=== PATIENT | female | born 1955 | race Caucasian/White ===

== ENCOUNTER 2021-01-29 23:02 | Emergency (ER) | payer MEDICARE, MEDICAID ==
[~2021-01-29] VITALS: Ht 167.6 cm; Wt 72.7 kg
[2021-01-29] MEDS ORDERED: LORazepam 2 mg/ml vial IV ONE (23:15)
[2021-01-29] MEDS ORDERED: normal saline 1000ML IV soln IVB ONE (23:15)
[2021-01-29 23:55] LABS: BASOPHILS % (AUTO) 0.9 % (0-1); EOSINOPHILS # (AUTO) 0.2 X10'3 (0-0.9); EOSINOPHILS % (AUTO) 7.5 % (0-6); HEMATOCRIT 34.9 % (35.0-45.0); HEMOGLOBIN 11.9 g/dl (12.0-16.0); LYMPHOCYTES # (AUTO) 0.7 X10'3 (1.1-4.8); MEAN CORPUSCULAR HEMOGLOBIN 31.4 PG (27.0-31.0); MEAN CORPUSCULAR HGB CONC 34.2 g/dL (33.0-36.5); MEAN PLATELET VOLUME 8.7 FL (7.4-10.4); MONOCYTES # (AUTO) 0.2 X10'3 (0-0.9); MONOCYTES % (AUTO) 6.9 % (2-12); NEUTROPHILS # (AUTO) 1.9 X10'3 (1.8-7.7); NEUTROPHILS % (AUTO) 61.7 % (42-75); PLATELET COUNT 69 X10'3 (140-440); RED BLOOD COUNT 3.79 X10'6 (4.20-5.60)
[2021-01-30 00:22] LABS: ALANINE AMINOTRANSFERASE 41 U/L (12-78); ALBUMIN 3.7 G/DL (3.4-5.0); ALBUMIN/GLOBULIN RATIO 0.9 (1.1-1.5); ALKALINE PHOSPHATASE 109 IU/L (46-116); ANION GAP 11 (8-16); ASPARTATE AMINO TRANSFERASE 26 U/L (10-37); BILIRUBIN,TOTAL 0.6 MG/DL (0.1-1.0); BLOOD UREA NITROGEN 8 MG/DL (7-18); BUN/CREATININE RATIO 8.8 (6.6-38.0); CALCIUM 9.2 MG/DL (8.5-10.1); CHLORIDE 99 MMOL/L (99-107); CREATININE 0.91 MG/DL (0.40-0.90); GLUCOSE 332 MG/DL (70-104); POTASSIUM 4.1 MMOL/L (3.5-5.1); SODIUM 133 MMOL/L (135-145); TOTAL CARBON DIOXIDE 23.1 MMOL/L (24-32); TOTAL PROTEIN 7.6 G/DL (6.4-8.2); eGFR 62 ML/MIN
[2021-01-30 00:25] LABS: TROPONIN I < 0.04 NG/ML (0.0-0.05)
[2021-01-30 01:50] VITALS: BP 156/58
== END 2021-01-30 01:52 | disposition home or self-care (01) ==
LOC: ER 23:03
DX: E11.65 Type 2 diabetes mellitus with hyperglycemia (principal); R42 Dizziness and giddiness; R51.9 Headache, unspecified; R19.7 Diarrhea, unspecified; R11.10 Vomiting, unspecified; E05.90 Thyrotoxicosis, unspecified without thyrotoxic crisis or storm; Z86.2 Personal history of diseases of the blood and blood-forming organs and certain disorders involving the immune mechanism; Z88.0 Allergy status to penicillin; Z88.5 Allergy status to narcotic agent; Z88.1 Allergy status to other antibiotic agents; Z88.8 Allergy status to other drugs, medicaments and biological substances
CPT/HCPCS: 70450; 71045; 80053; 84484; 85025; 93005; 96374; 99285; J2060; J7030; 96361

== ENCOUNTER 2021-08-11 08:44 | Emergency (ER) | payer MEDICARE, MEDICAID ==
[~2021-08-11] VITALS: Ht 170.2 cm; Wt 80.5 kg
[2021-08-11 09:07] VITALS: BP 176/75
[2021-08-11 09:58] LABS: BASOPHILS # (AUTO) 0.1 X10'3 (0-0.2); EOSINOPHILS # (AUTO) 0.3 X10'3 (0-0.9); HEMOGLOBIN 12.7 g/dl (12.0-16.0); MEAN CORPUSCULAR HEMOGLOBIN 31.5 PG (27.0-31.0); MONOCYTES # (AUTO) 0.3 X10'3 (0-0.9); NEUTROPHILS # (AUTO) 2.1 X10'3 (1.8-7.7)
[2021-08-11 10:00] LABS: BASOPHILS % (AUTO) 2.4 % (0-1); EOSINOPHILS % (AUTO) 6.8 % (0-6); HEMATOCRIT 37.1 % (35.0-45.0); LYMPHOCYTES # (AUTO) 1.3 X10'3 (1.1-4.8); LYMPHOCYTES % (AUTO) 31.7 % (21-51); MEAN CORPUSCULAR HGB CONC 34.2 g/dL (33.0-36.5); MEAN CORPUSCULAR VOLUME 92.1 FL (78-98); MEAN PLATELET VOLUME 8.4 FL (7.4-10.4); MONOCYTES % (AUTO) 7.8 % (2-12); NEUTROPHILS % (AUTO) 51.3 % (42-75); PLATELET COUNT 120 X10'3 (140-440); RED BLOOD COUNT 4.03 X10'6 (4.20-5.60); RED CELL DISTRIBUTION WIDTH 13.8 % (11.5-14.5)
[2021-08-11 10:14] LABS: ALANINE AMINOTRANSFERASE 53 U/L (12-78); ALBUMIN 3.9 G/DL (3.4-5.0); ALKALINE PHOSPHATASE 130 IU/L (46-116); ANION GAP 18 (8-16); ASPARTATE AMINO TRANSFERASE 30 U/L (10-37); BILIRUBIN,TOTAL 0.7 MG/DL (0.1-1.0); BLOOD UREA NITROGEN 8 MG/DL (7-18); BUN/CREATININE RATIO 12.1 (6.6-38.0); CALCIUM 8.8 MG/DL (8.5-10.1); CHLORIDE 98 MMOL/L (99-107); CREATININE 0.66 MG/DL (0.40-0.90); GLUCOSE 234 MG/DL (70-104); POTASSIUM 4.4 MMOL/L (3.5-5.1); SODIUM 133 MMOL/L (135-145); TOTAL CARBON DIOXIDE 16.9 MMOL/L (24-32); TOTAL PROTEIN 7.9 G/DL (6.4-8.2); eGFR 90 ML/MIN
== END 2021-08-11 15:38 | disposition left against medical advice (07) ==
LOC: ER 08:45
DX: R20.0 Anesthesia of skin (principal); Z53.21 Procedure and treatment not carried out due to patient leaving prior to being seen by health care provider
CPT/HCPCS: 36415; 71045; 80053; 82948; 84484; 85025; 93005

== ENCOUNTER 2023-10-08 16:39 | Emergency (ER) | payer MEDICARE, MEDICAID ==
[~2023-10-08] VITALS: Ht 170.2 cm; Wt 77.7 kg
[2023-10-08 17:55] LABS: BASOPHILS # (AUTO) 0.1 X10'3 (0-0.2); BASOPHILS % (AUTO) 1.9 % (0-1); EOSINOPHILS # (AUTO) 0.3 X10'3 (0-0.9); EOSINOPHILS % (AUTO) 8.4 % (0-6); HEMATOCRIT 29.8 % (35.0-45.0); HEMOGLOBIN 10.3 g/dl (12.0-16.0); LYMPHOCYTES # (AUTO) 0.7 X10'3 (1.1-4.8); LYMPHOCYTES % (AUTO) 19.1 % (21-51); MEAN CORPUSCULAR HEMOGLOBIN 31.6 PG (27.0-31.0); MEAN CORPUSCULAR HGB CONC 34.6 g/dL (33.0-36.5); MEAN CORPUSCULAR VOLUME 91.2 FL (78-98); MEAN PLATELET VOLUME 8.6 FL (7.4-10.4); MONOCYTES # (AUTO) 0.3 X10'3 (0-0.9); MONOCYTES % (AUTO) 9.4 % (2-12); NEUTROPHILS # (AUTO) 2.2 X10'3 (1.8-7.7); NEUTROPHILS % (AUTO) 61.2 % (42-75); PLATELET COUNT 88 X10'3 (140-440); RED BLOOD COUNT 3.27 X10'6 (4.20-5.60); RED CELL DISTRIBUTION WIDTH 13.9 % (11.5-14.5); WHITE BLOOD COUNT 3.7 X10'3 (4.5-11.0)
[2023-10-08 18:10] LABS: ALANINE AMINOTRANSFERASE 28 U/L (12-78); ALBUMIN 3.1 G/DL (3.4-5.0); ALBUMIN/GLOBULIN RATIO 0.9 (1.1-1.5); ALKALINE PHOSPHATASE 97 IU/L (46-116); ANION GAP 10 (8-16); ASPARTATE AMINO TRANSFERASE 32 U/L (10-37); BILIRUBIN,TOTAL 0.9 MG/DL (0.1-1.0); BLOOD UREA NITROGEN 13 MG/DL (7-18); BUN/CREATININE RATIO 15.3 (10.0-20.0); CHLORIDE 95 MMOL/L (99-107); CREATININE 0.85 MG/DL (0.40-0.90); GLUCOSE 245 MG/DL (70-104); POTASSIUM 5.2 MMOL/L (3.5-5.1); SODIUM 124 MMOL/L (135-145); TOTAL CARBON DIOXIDE 19.5 MMOL/L (24-32); TOTAL PROTEIN 6.5 G/DL (6.4-8.2); eCRCL 62 ML/MIN; eGFR 67 ML/MIN
[2023-10-08] MEDS ORDERED: normal saline 1000ml 1,000 ML IV ONE (19:10)
[2023-10-08 22:27] LABS: D-DIMER 1.57 MG/L FEU (0-0.50)
[2023-10-08] MEDS ORDERED: iohexol 350MG/ML 100ml bottle IV ONE (22:50)
[2023-10-09] MEDS ORDERED: acetaminophen 325mg tablet PO ONE (00:30)
[2023-10-09 01:14] VITALS: BP 158/59; PULSE 97; RESP 18; TEMP 98.1; O2SAT 96
== END 2023-10-09 01:20 | disposition home or self-care (01) ==
LOC: ER 16:40
DX: I44.7 Left bundle-branch block, unspecified (principal); E87.1 Hypo-osmolality and hyponatremia; R42 Dizziness and giddiness; E05.90 Thyrotoxicosis, unspecified without thyrotoxic crisis or storm; Z88.0 Allergy status to penicillin; Z88.1 Allergy status to other antibiotic agents; Z88.5 Allergy status to narcotic agent; Z79.899 Other long term (current) drug therapy
CPT/HCPCS: 36415; 71046; 71275; 80053; 84484; 85025; 85379; 93005; 96360; 99285; J3490; J7030; Q9967

== ENCOUNTER 2023-10-18 13:30 | Emergency (ER) | payer MEDICARE, MEDICAID ==
[~2023-10-18] VITALS: Ht 170.2 cm; Wt 76.6 kg
--- NOTE | 2023-10-18 14:53 | NUR ---
MSE COMPLETED BY SMILEY BRYSON.
[2023-10-18] MEDS ORDERED: doxycycline inj 100 MG in normal saline 100ml IV soln 100 ML IV STA (14:54)
[2023-10-18] MEDS ORDERED: clindamycin-Cleocin 900mg/D5W 50 ML IV ONE (14:55)
[2023-10-18 15:19] LABS: BASOPHILS # (AUTO) 0.1 X10'3 (0-0.2); BASOPHILS % (AUTO) 1.3 % (0-1); EOSINOPHILS # (AUTO) 0.2 X10'3 (0-0.9); HEMATOCRIT 31.9 % (35.0-45.0); LYMPHOCYTES # (AUTO) 0.9 X10'3 (1.1-4.8); LYMPHOCYTES % (AUTO) 15.6 % (21-51); MEAN CORPUSCULAR HEMOGLOBIN 31.8 PG (27.0-31.0); MEAN CORPUSCULAR HGB CONC 34.5 g/dL (33.0-36.5); MEAN CORPUSCULAR VOLUME 92.2 FL (78-98); MEAN PLATELET VOLUME 8.3 FL (7.4-10.4); MONOCYTES # (AUTO) 0.5 X10'3 (0-0.9); MONOCYTES % (AUTO) 9.8 % (2-12); NEUTROPHILS # (AUTO) 3.8 X10'3 (1.8-7.7); NEUTROPHILS % (AUTO) 69.3 % (42-75); PLATELET COUNT 108 X10'3 (140-440); RED BLOOD COUNT 3.46 X10'6 (4.20-5.60); RED CELL DISTRIBUTION WIDTH 14.2 % (11.5-14.5); WHITE BLOOD COUNT 5.5 X10'3 (4.5-11.0)
[2023-10-18 15:29] LABS: ALANINE AMINOTRANSFERASE 24 U/L (12-78); ALBUMIN 3.1 G/DL (3.4-5.0); ALBUMIN/GLOBULIN RATIO 0.8 (1.1-1.5); ALKALINE PHOSPHATASE 107 IU/L (46-116); ANION GAP 12 (8-16); ASPARTATE AMINO TRANSFERASE 28 U/L (10-37); BLOOD UREA NITROGEN 10 MG/DL (7-18); BUN/CREATININE RATIO 12.5 (10.0-20.0); CALCIUM 8.9 MG/DL (8.5-10.1); CHLORIDE 95 MMOL/L (99-107); GLUCOSE 215 MG/DL (70-104); POTASSIUM 4.4 MMOL/L (3.5-5.1); SODIUM 128 MMOL/L (135-145); TOTAL CARBON DIOXIDE 20.9 MMOL/L (24-32); TOTAL PROTEIN 7.2 G/DL (6.4-8.2); eCRCL 66 ML/MIN; eGFR 72 ML/MIN
[2023-10-18] MEDS ORDERED: diphenhydrAMINE 50 mg/ml inj IV ONE (16:25)
[2023-10-18] MEDS ORDERED: TETanus/Pertussis (Acell)/Diphther VAC/PF (Tdap-Adult) 0.5ml syringe IMVAC ONE (17:10)
[2023-10-18] MEDS ORDERED: METR-159 PO (17:18)
[2023-10-18] MEDS ORDERED: DOXY-356 PO (17:18)
[2023-10-18 19:21] VITALS: BP 148/54; PULSE 89; RESP 16; TEMP 98; O2SAT 100
== END 2023-10-18 19:24 | disposition home or self-care (01) ==
LOC: ER 13:30
DX: S61.452A Open bite of left hand, initial encounter (principal); E87.1 Hypo-osmolality and hyponatremia; K74.60 Unspecified cirrhosis of liver; D64.9 Anemia, unspecified; Z88.0 Allergy status to penicillin; Z88.1 Allergy status to other antibiotic agents; Z88.5 Allergy status to narcotic agent; W55.01XA Bitten by cat, initial encounter; Y93.89 Activity, other specified; Y92.89 Other specified places as the place of occurrence of the external cause; Y99.8 Other external cause status
CPT/HCPCS: 36415; 73130; 80053; 85025; 90471; 90715; 96365; 96366; 96367; 96375; 99284; J1200; J3490

== ENCOUNTER 2024-04-29 01:10 | Emergency (ER) | payer MEDICARE, MEDICAID ==
[~2024-04-29] VITALS: Ht 170.2 cm; Wt 85.6 kg
[2024-04-29 02:21] LABS: BILIRUBIN,URINE NEGATIVE (Neg); CLARITY,URINE CLEAR (Clear); COLOR,URINE YELLOW (Yellow); GLUCOSE, URINE NEGATIVE (Neg); KETONES,URINE NEGATIVE (Neg); LEUKOCYTE ESTERASE ,URINE NEGATIVE (Neg); NITRITES, URINE NEGATIVE (Neg); OCCULT BLOOD,URINE SMALL (Neg); PH,URINE 5.5 (4.8-8.0); PROTEIN,URINE 30 mg/dl (Neg); UROBILINOGEN,URINE 0.2 E.U/dL (0.2-1.0)
[2024-04-29 02:24] LABS: BASOPHILS # (AUTO) 0.1 X10'3 (0-0.2); BASOPHILS % (AUTO) 1.4 % (0-1); EOSINOPHILS # (AUTO) 0.4 X10'3 (0-0.9); HEMATOCRIT 33.5 % (35.0-45.0); HEMOGLOBIN 11.6 g/dl (12.0-16.0); LYMPHOCYTES # (AUTO) 0.8 X10'3 (1.1-4.8); LYMPHOCYTES % (AUTO) 16.2 % (21-51); MEAN CORPUSCULAR HEMOGLOBIN 30.7 PG (27.0-31.0); MEAN CORPUSCULAR HGB CONC 34.5 g/dL (33.0-36.5); MEAN PLATELET VOLUME 7.4 FL (7.4-10.4); MONOCYTES # (AUTO) 0.5 X10'3 (0-0.9); MONOCYTES % (AUTO) 9.6 % (2-12); NEUTROPHILS # (AUTO) 3.3 X10'3 (1.8-7.7); NEUTROPHILS % (AUTO) 64.8 % (42-75); PLATELET COUNT 149 X10'3 (140-440); RED BLOOD COUNT 3.77 X10'6 (4.20-5.60); RED CELL DISTRIBUTION WIDTH 14.9 % (11.5-14.5)
[2024-04-29 02:31] LABS: INR 1.1 INR; PROTHROMBIN TIME 12.2 SECONDS (9.0-12.0)
[2024-04-29] MEDS: fentaNYL/PF 50MCG/1 ML 2ML syringe IV ONE (02:36)
[2024-04-29] MEDS: ondansetron/PF 4mg/2ml inj IV ONE (02:36)
[2024-04-29 02:39] LABS: ALANINE AMINOTRANSFERASE 20 U/L (12-78); ALBUMIN 3.1 G/DL (3.4-5.0); ALBUMIN/GLOBULIN RATIO 0.8 (1.1-1.5); ALKALINE PHOSPHATASE 112 IU/L (46-116); ANION GAP 7 (8-16); ASPARTATE AMINO TRANSFERASE 26 U/L (10-37); BLOOD UREA NITROGEN 9 MG/DL (7-18); BUN/CREATININE RATIO 11.1 (10.0-20.0); CALCIUM 8.9 MG/DL (8.5-10.1); CHLORIDE 96 MMOL/L (99-107); CREATININE 0.81 MG/DL (0.40-0.90); GLUCOSE 146 MG/DL (70-104); LIPASE 18 U/L (16-77); POTASSIUM 4.2 MMOL/L (3.5-5.1); SODIUM 126 MMOL/L (135-145); TOTAL CARBON DIOXIDE 23.4 MMOL/L (24-32); TOTAL PROTEIN 7.1 G/DL (6.4-8.2); eCRCL 66 ML/MIN; eGFR 71 ML/MIN
[2024-04-29 02:50] LABS: UA COLLECTION TYPE CLN CATCH MIDSTREAM
[2024-04-29 02:54] LABS: BACTERIA,URINE NONE SEEN /HPF (Neg); MUCUS STRANDS NONE SEEN /LPF (Neg); SQUAMOUS EPITHELIAL CELL,UR FEW /LPF (FEW); WBC,URINE 0-4 /HPF (0-4)
[2024-04-29 03:10] VITALS: O2SAT 97
[2024-04-29] MEDS: albumin (human) 25% 100 ML IV solution IV ONE (03:28)
[2024-04-29 05:20] VITALS: BP 145/57; PULSE 98; RESP 21; TEMP 98.1
== END 2024-04-29 05:21 | disposition home or self-care (01) ==
LOC: ER 01:11
DX: R18.8 Other ascites (principal); Z88.0 Allergy status to penicillin; Z88.8 Allergy status to other drugs, medicaments and biological substances
CPT/HCPCS: 36415; 49083; 80053; 81001; 83690; 85025; 85610; 93005; 96374; 96375; 99285; J2405; J3010; P9047; A4615; A4628

== ENCOUNTER 2024-05-01 19:58 | Emergency (ER) | payer MEDICARE, MEDICAID ==
[2024-05-01] MEDS ORDERED: SPIR50TA PO (21:45)
[2024-05-01 22:44] LABS: BASOPHILS % (AUTO) 1.4 % (0-1); EOSINOPHILS # (AUTO) 0.2 X10'3 (0-0.9); HEMATOCRIT 28.7 % (35.0-45.0); HEMOGLOBIN 9.9 g/dl (12.0-16.0); LYMPHOCYTES # (AUTO) 0.6 X10'3 (1.1-4.8); LYMPHOCYTES % (AUTO) 18.2 % (21-51); MEAN CORPUSCULAR HEMOGLOBIN 30.5 PG (27.0-31.0); MEAN CORPUSCULAR HGB CONC 34.6 g/dL (33.0-36.5); MEAN PLATELET VOLUME 7.7 FL (7.4-10.4); MONOCYTES # (AUTO) 0.5 X10'3 (0-0.9); NEUTROPHILS # (AUTO) 2.2 X10'3 (1.8-7.7); NEUTROPHILS % (AUTO) 61.4 % (42-75); PLATELET COUNT 119 X10'3 (140-440); RED BLOOD COUNT 3.26 X10'6 (4.20-5.60); RED CELL DISTRIBUTION WIDTH 14.5 % (11.5-14.5); WHITE BLOOD COUNT 3.5 X10'3 (4.5-11.0)
[2024-05-01 22:48] LABS: ALANINE AMINOTRANSFERASE 17 U/L (12-78); ALBUMIN/GLOBULIN RATIO 0.9 (1.1-1.5); ALKALINE PHOSPHATASE 85 IU/L (46-116); AMYLASE 16 U/L (25-115); ANION GAP 9 (8-16); ASPARTATE AMINO TRANSFERASE 19 U/L (10-37); BILIRUBIN,TOTAL 0.8 MG/DL (0.1-1.0); BLOOD UREA NITROGEN 12 MG/DL (7-18); BUN/CREATININE RATIO 16.4 (10.0-20.0); CALCIUM 8.8 MG/DL (8.5-10.1); CHLORIDE 95 MMOL/L (99-107); CREATININE 0.73 MG/DL (0.40-0.90); GLUCOSE 129 MG/DL (70-104); LIPASE 17 U/L (16-77); POTASSIUM 4.9 MMOL/L (3.5-5.1); SODIUM 124 MMOL/L (135-145); TOTAL CARBON DIOXIDE 20.4 MMOL/L (24-32); TOTAL PROTEIN 6.4 G/DL (6.4-8.2); eGFR 80 ML/MIN
[2024-05-01 23:00] VITALS: BP 137/52; PULSE 89; RESP 17; O2SAT 96
[2024-05-01] MEDS: pantoprazole 40mg Tablet.DR PO SCH (23:21)
[2024-05-01] MEDS: LORazepam 1 MG tablet PO ONE (23:21)
[2024-05-01] MEDS: furosemide 20MG tablet PO ONE (23:21)
[2024-05-02] MEDS ORDERED: pantoprazole 40mg Tablet.DR PO SCH (07:30)
== END 2024-05-02 00:07 | disposition home or self-care (01) ==
LOC: ER 19:59
DX: K74.60 Unspecified cirrhosis of liver (principal); R18.8 Other ascites; R10.9 Unspecified abdominal pain; E11.9 Type 2 diabetes mellitus without complications
CPT/HCPCS: 36415; 80053; 82150; 83690; 85025; 99284

== ENCOUNTER 2024-07-03 11:35 | Emergency (ER) | payer MEDICARE, MEDICAID ==
[~2024-07-03] VITALS: Ht 167.6 cm; Wt 67.3 kg
[~2024-07-03 11:35] MED LIST: SPIR50TA PO
[2024-07-03 11:36] VITALS: TEMP 98.4
[2024-07-03] MEDS: LIDOcaine 1% W/epiNEPHrine 1:100,000 20ml vial SQ ONE (12:05)
[2024-07-03 12:13] LABS: BILIRUBIN,URINE NEGATIVE (Neg); CLARITY,URINE CLEAR (Clear); COLOR,URINE YELLOW (Yellow); GLUCOSE, URINE NEGATIVE (Neg); KETONES,URINE NEGATIVE (Neg); LEUKOCYTE ESTERASE ,URINE NEGATIVE (Neg); NITRITES, URINE NEGATIVE (Neg); OCCULT BLOOD,URINE TRACE-INTACT (Neg); PROTEIN,URINE TRACE mg/dl (Neg); UROBILINOGEN,URINE 0.2 E.U/dL (0.2-1.0)
[2024-07-03 12:16] LABS: BASOPHILS # (AUTO) 0.1 X10'3 (0-0.2); BASOPHILS % (AUTO) 1.4 % (0-1); EOSINOPHILS # (AUTO) 0.4 X10'3 (0-0.9); EOSINOPHILS % (AUTO) 6.6 % (0-6); LYMPHOCYTES # (AUTO) 0.7 X10'3 (1.1-4.8); LYMPHOCYTES % (AUTO) 12.4 % (21-51); MEAN CORPUSCULAR HEMOGLOBIN 30.6 PG (27.0-31.0); MEAN CORPUSCULAR HGB CONC 34.5 g/dL (33.0-36.5); MEAN CORPUSCULAR VOLUME 88.7 FL (78-98); MEAN PLATELET VOLUME 7.3 FL (7.4-10.4); MONOCYTES # (AUTO) 0.6 X10'3 (0-0.9); MONOCYTES % (AUTO) 9.8 % (2-12); NEUTROPHILS % (AUTO) 69.8 % (42-75); PLATELET COUNT 166 X10'3 (140-440); RED BLOOD COUNT 3.61 X10'6 (4.20-5.60); RED CELL DISTRIBUTION WIDTH 14.9 % (11.5-14.5); WHITE BLOOD COUNT 5.7 X10'3 (4.5-11.0)
[2024-07-03 12:24] LABS: INR 1.1 INR; PROTHROMBIN TIME 11.6 SECONDS (9.0-12.0)
[2024-07-03 12:28] LABS: UA COLLECTION TYPE NON-SPECIFIED
[2024-07-03 12:29] LABS: ALANINE AMINOTRANSFERASE 20 U/L (12-78); ALBUMIN 3.3 G/DL (3.4-5.0); ALBUMIN/GLOBULIN RATIO 0.8 (1.1-1.5); ALKALINE PHOSPHATASE 188 IU/L (46-116); ANION GAP 10 (8-16); ASPARTATE AMINO TRANSFERASE 23 U/L (10-37); BILIRUBIN,TOTAL 1.3 MG/DL (0.1-1.0); BLOOD UREA NITROGEN 15 MG/DL (7-18); BUN/CREATININE RATIO 17.9 (10.0-20.0); CALCIUM 9.2 MG/DL (8.5-10.1); CHLORIDE 91 MMOL/L (99-107); CREATININE 0.84 MG/DL (0.40-0.90); GLUCOSE 174 MG/DL (70-104); LIPASE 25 U/L (16-77); SODIUM 122 MMOL/L (135-145); TOTAL CARBON DIOXIDE 21.4 MMOL/L (24-32); TOTAL PROTEIN 7.7 G/DL (6.4-8.2); eCRCL 61 ML/MIN; eGFR 68 ML/MIN
[2024-07-03 12:29] LABS: BACTERIA,URINE NONE SEEN /HPF (Neg); MUCUS STRANDS NONE SEEN /LPF (Neg); RBC,URINE 0-2 /HPF (0-2); SQUAMOUS EPITHELIAL CELL,UR FEW /LPF (FEW); WBC,URINE NONE SEEN /HPF (0-4); YEAST FEW /HPF (NEGATIVE)
[2024-07-03] MEDS: LORazepam 2 mg/ml vial IV ONE (13:22)
[2024-07-03] MEDS: furosemide 40mg/4ml inj IV ONE (13:55)
[2024-07-03 16:37] LABS: ALBUMIN 3.2 G/DL (3.4-5.0); ANION GAP 8 (8-16); BLOOD UREA NITROGEN 15 MG/DL (7-18); BUN/CREATININE RATIO 17.9 (10.0-20.0); CHLORIDE 91 MMOL/L (99-107); CREATININE 0.84 MG/DL (0.40-0.90); GLUCOSE 182 MG/DL (70-104); SODIUM 121 MMOL/L (135-145); TOTAL CARBON DIOXIDE 21.7 MMOL/L (24-32); eCRCL 61 ML/MIN; eGFR 68 ML/MIN
[2024-07-03 16:38] LABS: POTASSIUM 5.2 MMOL/L (3.5-5.1)
[2024-07-03 17:17] VITALS: BP 125/43; PULSE 78; RESP 18; O2SAT 98
== END 2024-07-03 17:19 | disposition home or self-care (01) ==
LOC: ER 11:35
DX: R18.8 Other ascites (principal); E87.1 Hypo-osmolality and hyponatremia; D64.9 Anemia, unspecified; E05.90 Thyrotoxicosis, unspecified without thyrotoxic crisis or storm; Z88.0 Allergy status to penicillin; Z88.1 Allergy status to other antibiotic agents; Z88.8 Allergy status to other drugs, medicaments and biological substances; Z79.899 Other long term (current) drug therapy
CPT/HCPCS: 36415; 49083; 80048; 80053; 81001; 83690; 85025; 85610; 96374; 96375; 99285; J1940; J2060; Z7610

== ENCOUNTER 2024-08-16 15:07 | Inpatient (IN) | payer MEDICARE, MEDICAID ==
[~2024-08-16] VITALS: Ht 170.2 cm; Wt 74.8 kg
[2024-08-16] MEDS: HYDROmorphone inj. 0.5 MG/0.5 ML DISP.SYRIN IV ONE ×2 (16:10→19:06)
[2024-08-16 16:40] LABS: BASOPHILS # (AUTO) 0.1 X10'3 (0-0.2); BASOPHILS % (AUTO) 1.2 % (0-1); EOSINOPHILS # (AUTO) 0.5 X10'3 (0-0.9); EOSINOPHILS % (AUTO) 9.5 % (0-6); HEMOGLOBIN 10.2 g/dl (12.0-16.0); LYMPHOCYTES # (AUTO) 0.7 X10'3 (1.1-4.8); LYMPHOCYTES % (AUTO) 12.2 % (21-51); MEAN CORPUSCULAR HEMOGLOBIN 30.6 PG (27.0-31.0); MEAN CORPUSCULAR HGB CONC 33.9 g/dL (33.0-36.5); MEAN CORPUSCULAR VOLUME 90.3 FL (78-98); MEAN PLATELET VOLUME 7.8 FL (7.4-10.4); MONOCYTES # (AUTO) 0.5 X10'3 (0-0.9); NEUTROPHILS # (AUTO) 3.9 X10'3 (1.8-7.7); NEUTROPHILS % (AUTO) 68.1 % (42-75); PLATELET COUNT 166 X10'3 (140-440); RED BLOOD COUNT 3.33 X10'6 (4.20-5.60); RED CELL DISTRIBUTION WIDTH 14.4 % (11.5-14.5); WHITE BLOOD COUNT 5.7 X10'3 (4.5-11.0)
[2024-08-16 16:47] LABS: INR 1.1 INR; PROTHROMBIN TIME 11.5 SECONDS (9.0-12.0)
[2024-08-16 16:51] LABS: ALANINE AMINOTRANSFERASE 11 U/L (12-78); ALBUMIN 3.2 G/DL (3.4-5.0); ALBUMIN/GLOBULIN RATIO 0.8 (1.1-1.5); ALKALINE PHOSPHATASE 180 IU/L (46-116); ANION GAP 9 (8-16); ASPARTATE AMINO TRANSFERASE 28 U/L (10-37); BILIRUBIN,TOTAL 1.2 MG/DL (0.1-1.0); BLOOD UREA NITROGEN 16 MG/DL (7-18); BUN/CREATININE RATIO 19.3 (10.0-20.0); CALCIUM 9.4 MG/DL (8.5-10.1); CHLORIDE 95 MMOL/L (99-107); CREATININE 0.83 MG/DL (0.40-0.90); GLUCOSE 160 MG/DL (70-104); POTASSIUM 4.5 MMOL/L (3.5-5.1); SODIUM 127 MMOL/L (135-145); TOTAL CARBON DIOXIDE 23.1 MMOL/L (24-32); TOTAL PROTEIN 7.4 G/DL (6.4-8.2); eCRCL 63 ML/MIN; eGFR 68 ML/MIN
[2024-08-16 16:56] LABS: BILIRUBIN,DIRECT 0.4 MG/DL (0-0.3); MAGNESIUM 1.7 MG/DL (1.5-2.4)
[2024-08-16] MEDS ORDERED: GLIP10TA11 PO (17:29)
[2024-08-16] MEDS ORDERED: ALBU10.7 (17:29)
[2024-08-16] MEDS: LORazepam 2 mg/ml vial IV ONE (17:29)
[2024-08-16] MEDS ORDERED: ALBUTEROL (17:29)
[2024-08-16] MEDS ORDERED: FURO20TA4 PO (17:29)
[2024-08-16] MEDS ORDERED: ALPR1TAB7 (17:29)
[2024-08-16] MEDS ORDERED: LEVO50TA8 PO (17:29)
[2024-08-16] MEDS ORDERED: METF-438 PO (17:29)
[2024-08-16] MEDS ORDERED: CHOL500050 PO (17:29)
[2024-08-16] MEDS: ertapenem sod inj 1 GM in normal saline 100ml IV soln 100 ML IV ONE (18:16)
[2024-08-16] MEDS: albumin (human) 25% 100 ML IV solution IV ONE (19:07)
[2024-08-16] MEDS ORDERED: DEXTROSE 15 GM of carb/4 tabs (each vial/BOTTLE has 4 tablets) PO PRN ×2 (19:30)
[2024-08-16] MEDS ORDERED: dextrose 50%-water 50ml dispensing syringe IV PRN ×2 (19:30)
[2024-08-16] MEDS ORDERED: magnesium hydroxide 30ml (MOM) UD suspension PO PRN (19:30)
[2024-08-16] MEDS ORDERED: potassium Cl 20 mEq SR tablet PO PRN ×2 (19:30)
[2024-08-16] MEDS ORDERED: potassium Cl 40MEQ/1/2NS 520ml 520 ML IV PRN (19:30)
[2024-08-16] MEDS ORDERED: mag hydrox/Alum hydrox/simeth 30ml oral suspension PO PRN (19:30)
[2024-08-16] MEDS ORDERED: glucagon, human recombinant 1mg kit SUBCUT PRN (19:30)
[2024-08-16] MEDS ORDERED: magnesium Cl slow-release 64mg tablet PO PRN (19:30)
[2024-08-16] MEDS ORDERED: magnesium sulf-water 4G/100mL 100 ML IV PRN (19:30)
[2024-08-16] MEDS ORDERED: acetaminophen 325mg tablet PO PRN (19:30)
[2024-08-16] MEDS ORDERED: magnesium sulf-water 2g/50mL 50 ML IV PRN (19:30)
[2024-08-16 19:32] LABS: LDH,BODY FLUID 63 U/L
[2024-08-16] MEDS: docusate sod 100mg capsule PO SCH (20:00)
[2024-08-16] MEDS: K and/or MAG REPLACEMENT MC SCH (20:00)
[2024-08-16] MEDS: enoxaparin 40mg/0.4ml syringe SQ SCH (20:00)
[2024-08-16 20:01] LABS: BILIRUBIN,URINE NEGATIVE (Neg); CLARITY,URINE CLEAR (Clear); COLOR,URINE YELLOW (Yellow); GLUCOSE, URINE NEGATIVE (Neg); KETONES,URINE NEGATIVE (Neg); LEUKOCYTE ESTERASE ,URINE NEGATIVE (Neg); NITRITES, URINE NEGATIVE (Neg); OCCULT BLOOD,URINE SMALL (Neg); PROTEIN,URINE TRACE mg/dl (Neg); UROBILINOGEN,URINE 0.2 E.U/dL (0.2-1.0)
[2024-08-16 20:07] LABS: ALBUMIN,BODY FLUID 1.2 G/DL; TOTAL PROTEIN,BODY FLUID 2.4 G/DL
[2024-08-16 20:11] LABS: UA COLLECTION TYPE CLN CATCH MIDSTREAM
[2024-08-16 20:14] LABS: BACTERIA,URINE FEW /HPF (Neg); RBC,URINE 0-2 /HPF (0-2); SQUAMOUS EPITHELIAL CELL,UR FEW /LPF (FEW); WBC,URINE 0-4 /HPF (0-4)
[2024-08-16 20:15] LABS: MUCUS STRANDS FEW /LPF (Neg)
[2024-08-16 20:48] LABS: BFSOURCE PERITONEAL FLD
[2024-08-16 20:49] LABS: BF RBC COUNT 188.8 /CU MM; BF WBC COUNT 101.3 /CU MM (0-1000); BFAPPEAR HAZY; BFCOLOR YELLOW; BFVOLUME 22 ML; NEUTROPHILS,BODY FLUID 2 %
[2024-08-16 20:50] LABS: BASOPHILS,BODY FLUID 0 %
[2024-08-16 20:54] LABS: BF MESOTHELIAL CELLS FEW; EOSINOPHILS,BODY FLUID 1 %
[2024-08-16 20:55] LABS: LYMPHOCYTES,BODY FLUID 56 %; MONOCYTES,BODY FLUID 41 %
[2024-08-16] MEDS: INSULIN LISPRO 100 UNIT/ML INSULN.PEN MULTI-DOSE SQ SCH (21:00)
[2024-08-16] MEDS: insulin glargine (Lantus) pen - multi-dose SQ SCH (21:00)
[2024-08-16 21:45] LABS: HEMOGLOBIN A1C 5.7 % (4.5-6.2)
[2024-08-16] MEDS ORDERED: vancomycin/NS 1 GM ADD-VANTAGE 250 ML IV SCH (22:00)
[2024-08-16] MEDS: vancomycin/NS 1 GM ADD-VANTAGE 250 ML X 1 DOSE IV ONE (22:53)
[2024-08-16] MEDS: ALPRAZolam 0.5mg tablet PO PRN (22:58)
[2024-08-16 23:00] VITALS: BP 164/55; PULSE 86; RESP 15; TEMP 97.5; O2SAT 97
[2024-08-17] MEDS: morphine 2 MG/ML inj. syringe IV PRN (05:08)
[2024-08-17 05:58] LABS: BASOPHILS # (AUTO) 0.1 X10'3 (0-0.2); BASOPHILS % (AUTO) 1.4 % (0-1); EOSINOPHILS # (AUTO) 0.2 X10'3 (0-0.9); HEMATOCRIT 26.1 % (35.0-45.0); HEMOGLOBIN 8.9 g/dl (12.0-16.0); LYMPHOCYTES # (AUTO) 0.5 X10'3 (1.1-4.8); LYMPHOCYTES % (AUTO) 12.4 % (21-51); MEAN CORPUSCULAR HEMOGLOBIN 30.4 PG (27.0-31.0); MEAN CORPUSCULAR HGB CONC 33.9 g/dL (33.0-36.5); MEAN CORPUSCULAR VOLUME 89.6 FL (78-98); MEAN PLATELET VOLUME 7.6 FL (7.4-10.4); MONOCYTES # (AUTO) 0.4 X10'3 (0-0.9); MONOCYTES % (AUTO) 10.7 % (2-12); NEUTROPHILS # (AUTO) 2.7 X10'3 (1.8-7.7); NEUTROPHILS % (AUTO) 70.5 % (42-75); PLATELET COUNT 130 X10'3 (140-440); RED BLOOD COUNT 2.91 X10'6 (4.20-5.60); RED CELL DISTRIBUTION WIDTH 14.3 % (11.5-14.5); WHITE BLOOD COUNT 3.8 X10'3 (4.5-11.0)
[2024-08-17 06:00] VITALS: BP 144/57; PULSE 94; RESP 14; TEMP 98.2; O2SAT 97
[2024-08-17] MEDS: ondansetron/PF 4mg/2ml inj IV PRN (06:04)
[2024-08-17 06:17] LABS: ALANINE AMINOTRANSFERASE 17 U/L (12-78); ALBUMIN 3.1 G/DL (3.4-5.0); ALBUMIN/GLOBULIN RATIO 0.9 (1.1-1.5); ALKALINE PHOSPHATASE 134 IU/L (46-116); ANION GAP 10 (8-16); ASPARTATE AMINO TRANSFERASE 20 U/L (10-37); BILIRUBIN,TOTAL 1.1 MG/DL (0.1-1.0); BLOOD UREA NITROGEN 13 MG/DL (7-18); BUN/CREATININE RATIO 18.8 (10.0-20.0); CALCIUM 8.9 MG/DL (8.5-10.1); CHLORIDE 97 MMOL/L (99-107); CREATININE 0.69 MG/DL (0.40-0.90); GLUCOSE 183 MG/DL (70-104); MAGNESIUM 1.6 MG/DL (1.5-2.4); POTASSIUM 4.5 MMOL/L (3.5-5.1); SODIUM 129 MMOL/L (135-145); TOTAL CARBON DIOXIDE 22.2 MMOL/L (24-32); TOTAL PROTEIN 6.4 G/DL (6.4-8.2); eCRCL 76 ML/MIN; eGFR 85 ML/MIN
[2024-08-17] MEDS: furosemide 20MG tablet PO SCH (07:04)
[2024-08-17] MEDS: cholecalciferol (vitamin D3) 1,000 unit (25mcg) tablet PO SCH (07:04)
[2024-08-17] MEDS: levoTHYROXINE 25mcg tablet PO SCH (07:06)
[2024-08-17] MEDS: spironolactone 50 MG tablet PO SCH (07:08)
[2024-08-17 08:00] VITALS: RESP 16; O2SAT 97
[2024-08-17] MEDS: INSULIN LISPRO 100 UNIT/ML INSULN.PEN MULTI-DOSE SQ SCH (08:19)
[2024-08-17] MEDS: vancomycin/NS 1 GM ADD-VANTAGE 250 ML IV SCH (09:43)
[2024-08-17] MEDS ORDERED: vancomycin/NS 1 GM ADD-VANTAGE 250 ML IV SCH (10:00)
[2024-08-17] MEDS: sulfmethoxaz/trimethoprim inj 10 ML in dextrose 5%-water 240 ML IV SCH (14:15)
[2024-08-17] MEDS ORDERED: traMADol 50MG tablet PO PRN (16:00)
[2024-08-17] MEDS: HYDROcodone/acetaminophen 5mg/325mg tablet PO PRN (17:53)
[2024-08-17 18:00] VITALS: BP 133/41; PULSE 90; RESP 14; TEMP 97.9; O2SAT 94
[2024-08-17] MEDS ORDERED: ertapenem sod inj 1 GM in normal saline 100ml IV soln 100 ML IV SCH (18:00)
[2024-08-17] MEDS: rivaroxaban 10mg tablet PO SCH (20:00)
[2024-08-17] MEDS: acetaminophen 325mg tablet PO SCH (20:00)
[2024-08-17 22:00] VITALS: BP 157/49; PULSE 87; RESP 16; TEMP 96.6; O2SAT 96
[2024-08-17 22:30] VITALS: RESP 14
[2024-08-17] MEDS: Melatonin 3mg tablet PO SCH (23:22)
[2024-08-18 06:00] VITALS: BP 136/31; PULSE 85; RESP 18; TEMP 97.4; O2SAT 98
[2024-08-18 06:53] LABS: BASOPHILS # (AUTO) 0.1 X10'3 (0-0.2); EOSINOPHILS # (AUTO) 0.3 X10'3 (0-0.9); EOSINOPHILS % (AUTO) 8.1 % (0-6); HEMATOCRIT 23.8 % (35.0-45.0); LYMPHOCYTES # (AUTO) 0.5 X10'3 (1.1-4.8); LYMPHOCYTES % (AUTO) 15.1 % (21-51); MEAN CORPUSCULAR HEMOGLOBIN 30.2 PG (27.0-31.0); MEAN CORPUSCULAR HGB CONC 33.7 g/dL (33.0-36.5); MEAN CORPUSCULAR VOLUME 89.6 FL (78-98); MEAN PLATELET VOLUME 7.2 FL (7.4-10.4); MONOCYTES # (AUTO) 0.5 X10'3 (0-0.9); MONOCYTES % (AUTO) 13.1 % (2-12); NEUTROPHILS # (AUTO) 2.2 X10'3 (1.8-7.7); NEUTROPHILS % (AUTO) 61.7 % (42-75); PLATELET COUNT 107 X10'3 (140-440); RED BLOOD COUNT 2.66 X10'6 (4.20-5.60); RED CELL DISTRIBUTION WIDTH 14.1 % (11.5-14.5); WHITE BLOOD COUNT 3.6 X10'3 (4.5-11.0)
[2024-08-18 07:09] LABS: ALANINE AMINOTRANSFERASE 14 U/L (12-78); ALBUMIN 2.6 G/DL (3.4-5.0); ALBUMIN/GLOBULIN RATIO 0.8 (1.1-1.5); ALKALINE PHOSPHATASE 105 IU/L (46-116); ANION GAP 8 (8-16); ASPARTATE AMINO TRANSFERASE 17 U/L (10-37); BILIRUBIN,TOTAL 0.6 MG/DL (0.1-1.0); BLOOD UREA NITROGEN 14 MG/DL (7-18); BUN/CREATININE RATIO 16.3 (10.0-20.0); CALCIUM 8.6 MG/DL (8.5-10.1); CHLORIDE 97 MMOL/L (99-107); CREATININE 0.86 MG/DL (0.40-0.90); GLUCOSE 172 MG/DL (70-104); MAGNESIUM 1.5 MG/DL (1.5-2.4); POTASSIUM 4.2 MMOL/L (3.5-5.1); SODIUM 128 MMOL/L (135-145); TOTAL PROTEIN 5.7 G/DL (6.4-8.2); eCRCL 61 ML/MIN; eGFR 66 ML/MIN
[2024-08-18] MEDS ORDERED: non-formulary drug (Glipizide 1 TAB) PO SCH (08:00)
[2024-08-18] MEDS ORDERED: non-formulary drug (Metformin HCl 1 TAB) PO SCH (08:00)
[2024-08-18] MEDS: spironolactone 25 MG tablet PO SCH (08:36)
[2024-08-18] MEDS: VANCOMYCIN LEVEL IV ONE (09:02)
[2024-08-18 11:28] VITALS: BP 148/50; PULSE 70; RESP 16; TEMP 97.9; O2SAT 98
[2024-08-18] MEDS ORDERED: RIVA10TA PO (14:30)
== END 2024-08-18 15:55 | disposition home health service (06) | DRG 433 ==
LOC: ER 15:08 → ED HOLD 20:49 → EDBEDREQ 21:43 → ORTHO 4S 22:16
PROVIDERS: ADMIT Internal Medicine Critical Care Medicine; ATTEND Internal Medicine
PROC: 0W9G3ZZ Drainage of Peritoneal Cavity, Percutaneous Approach (ICD-10-PCS; principal; 2024-08-16)
DX: K74.69 Other cirrhosis of liver (principal); E87.1 Hypo-osmolality and hyponatremia; R18.8 Other ascites; K76.6 Portal hypertension; L97.528 Non-pressure chronic ulcer of other part of left foot with other specified severity; K72.10 Chronic hepatic failure without coma; I73.9 Peripheral vascular disease, unspecified; E11.51 Type 2 diabetes mellitus with diabetic peripheral angiopathy without gangrene; K75.81 Nonalcoholic steatohepatitis (NASH); F41.9 Anxiety disorder, unspecified; F17.210 Nicotine dependence, cigarettes, uncomplicated; F43.10 Post-traumatic stress disorder, unspecified; E03.9 Hypothyroidism, unspecified; S81.801A Unspecified open wound, right lower leg, initial encounter; X58.XXXA Exposure to other specified factors, initial encounter; D63.8 Anemia in other chronic diseases classified elsewhere; Z88.0 Allergy status to penicillin; Z88.1 Allergy status to other antibiotic agents; Z88.5 Allergy status to narcotic agent; Z79.899 Other long term (current) drug therapy; Z79.84 Long term (current) use of oral hypoglycemic drugs; Y93.89 Activity, other specified; Y99.8 Other external cause status; Y92.89 Other specified places as the place of occurrence of the external cause; Z90.710 Acquired absence of both cervix and uterus; F17.200 Nicotine dependence, unspecified, uncomplicated
CPT/HCPCS: 36415; 71045; 76700; 80048; 80053; 80076; 80202; 81001; 82042; 82140; 82945; 82948; 83036; 83605; 83615; 83735; 84145; 84157; 84484; 85025; 85610; 85651; 87040; 87070; 87081; 89051; 93005; 93922; 96365; 96366; 96375; 96376; 97116; 97161; 97530; 99285; A4358; A6213; A6446; A6449; G0378; J1170; J1335; J1815; J2060; J2270; J2405; J3370; J3490; J7060; P9047

== ENCOUNTER 2024-11-14 21:07 | Inpatient (IN) | payer MEDICARE, MEDICAID ==
[~2024-11-14] VITALS: Ht 170.2 cm; Wt 82.3 kg
[~2024-11-14 21:07] MED LIST changes: +ALPR1TAB7 PO; +FURO20TA4 PO; +GLIP10TA18 PO; +LEVO50TA8 PO
[2024-11-15 14:00] VITALS: BP 158/47; PULSE 68; RESP 14; TEMP 98.2; O2SAT 100
[2024-11-15] MEDS ORDERED: magnesium hydroxide 30ml (MOM) UD suspension PO PRN (14:00)
[2024-11-15] MEDS ORDERED: dextrose 50%-water 50ml dispensing syringe IV PRN ×2 (14:00)
[2024-11-15] MEDS ORDERED: glucagon, human recombinant 1mg kit SUBCUT PRN (14:00)
[2024-11-15] MEDS ORDERED: magnesium sulf-water 4G/100mL 100 ML IV PRN (14:00)
[2024-11-15] MEDS ORDERED: morphine 2 MG/ML inj. syringe IV PRN (14:00)
[2024-11-15] MEDS ORDERED: potassium Cl 20 mEq SR tablet PO PRN ×2 (14:00)
[2024-11-15] MEDS ORDERED: potassium Cl 40MEQ/1/2NS 520ml 520 ML IV PRN (14:00)
[2024-11-15] MEDS ORDERED: HYDROcodone/acetaminophen 10/325mg tab PO PRN (14:00)
[2024-11-15] MEDS ORDERED: ondansetron/PF 4mg/2ml inj IV PRN (14:00)
[2024-11-15] MEDS ORDERED: mag hydrox/Alum hydrox/simeth 30ml oral suspension PO PRN (14:00)
[2024-11-15] MEDS ORDERED: DEXTROSE 15 GM of carb/4 tabs (each vial/BOTTLE has 4 tablets) PO PRN ×2 (14:00)
[2024-11-15] MEDS ORDERED: magnesium Cl slow-release 64mg tablet PO PRN (14:00)
[2024-11-15] MEDS ORDERED: magnesium sulf-water 2g/50mL 50 ML IV PRN (14:00)
[2024-11-15 15:06] LABS: BASOPHILS % (AUTO) 0.4 % (0-1); EOSINOPHILS # (AUTO) 0.2 X10'3 (0-0.9); EOSINOPHILS % (AUTO) 6.2 % (0-6); HEMATOCRIT 31.9 % (35.0-45.0); HEMOGLOBIN 10.8 g/dl (12.0-16.0); LYMPHOCYTES # (AUTO) 0.6 X10'3 (1.1-4.8); LYMPHOCYTES % (AUTO) 16.5 % (21-51); MEAN CORPUSCULAR HEMOGLOBIN 30.5 PG (27.0-31.0); MEAN CORPUSCULAR VOLUME 89.9 FL (78-98); MEAN PLATELET VOLUME 8.5 FL (7.4-10.4); MONOCYTES # (AUTO) 0.5 X10'3 (0-0.9); MONOCYTES % (AUTO) 14.9 % (2-12); NEUTROPHILS # (AUTO) 2.3 X10'3 (1.8-7.7); PLATELET COUNT 71 X10'3 (140-440); RED BLOOD COUNT 3.54 X10'6 (4.20-5.60); RED CELL DISTRIBUTION WIDTH 18.3 % (11.5-14.5); WHITE BLOOD COUNT 3.6 X10'3 (4.5-11.0)
[2024-11-15 15:32] LABS: POTASSIUM 4.3 MMOL/L (3.5-5.1)
[2024-11-15 15:41] LABS: HEMOGLOBIN A1C 6.8 % (4.5-6.2)
[2024-11-15 15:43] LABS: ALANINE AMINOTRANSFERASE 28 U/L (12-78); ALBUMIN 2.8 G/DL (3.4-5.0); ALBUMIN/GLOBULIN RATIO 0.7 (1.1-1.5); ALKALINE PHOSPHATASE 116 IU/L (46-116); ANION GAP 9 (8-16); BILIRUBIN,TOTAL 1.3 MG/DL (0.1-1.0); BLOOD UREA NITROGEN 26 MG/DL (7-18); BUN/CREATININE RATIO 30.6 (10.0-20.0); CALCIUM 8.7 MG/DL (8.5-10.1); CHLORIDE 101 MMOL/L (99-107); CREATININE 0.85 MG/DL (0.40-0.90); GLUCOSE 193 MG/DL (70-104); SODIUM 134 MMOL/L (135-145); THYROID STIMULATING HORMONE 5.05 ulU/ml (0.34-4.50); TOTAL CARBON DIOXIDE 23.7 MMOL/L (24-32); TOTAL PROTEIN 6.6 G/DL (6.4-8.2); eGFR 67 ML/MIN
[2024-11-15 15:44] LABS: ASPARTATE AMINO TRANSFERASE 36 U/L (10-37); POTASSIUM 4.4 MMOL/L (3.5-5.1)
[2024-11-15] MEDS: HYDROcodone/acetaminophen 5mg/325mg tablet PO PRN (16:18)
[2024-11-15 16:25] VITALS: RESP 16; O2SAT 98
[2024-11-15 16:48] VITALS: BP 137/48; PULSE 79; RESP 14; TEMP 97.6; O2SAT 98
[2024-11-15] MEDS: INSULIN LISPRO 100 UNIT/ML INSULN.PEN MULTI-DOSE SQ SCH (17:00)
[2024-11-15] MEDS: rivaroxaban 15mg tablet PO SCH (17:24)
[2024-11-15 18:00] VITALS: BP 118/27; PULSE 84; RESP 16; TEMP 98; O2SAT 97
[2024-11-15 20:00] VITALS: RESP 18; O2SAT 95
[2024-11-15] MEDS: K and/or MAG REPLACEMENT MC SCH (20:00)
[2024-11-15] MEDS: docusate sod 100mg capsule PO SCH (20:00)
[2024-11-15 22:00] VITALS: BP 126/84; PULSE 83; RESP 18; TEMP 97.4; O2SAT 95
[2024-11-15] MEDS: ALPRAZolam 0.5mg tablet PO ONE (22:40)
[2024-11-16] VITALS (8 sets, daily range): BP systolic 98–148; BP diastolic 41–52; PULSE 73–88; RESP 11–16; TEMP 97.8–99.2; O2SAT 95–100
[2024-11-16] MEDS ORDERED: glipizide 5mg tablet PO SCH (07:30)
[2024-11-16 07:55] LABS: EOSINOPHILS # (AUTO) 0.1 X10'3 (0-0.9); HEMOGLOBIN 8.6 g/dl (12.0-16.0); LYMPHOCYTES # (AUTO) 0.4 X10'3 (1.1-4.8); MEAN CORPUSCULAR VOLUME 89.1 FL (78-98); MONOCYTES # (AUTO) 0.5 X10'3 (0-0.9); NEUTROPHILS % (AUTO) 68.3 % (42-75); PLATELET COUNT 62 X10'3 (140-440)
[2024-11-16 07:58] LABS: BASOPHILS % (AUTO) 0.8 % (0-1); EOSINOPHILS % (AUTO) 3.8 % (0-6); HEMATOCRIT 25.5 % (35.0-45.0); MEAN CORPUSCULAR HEMOGLOBIN 29.9 PG (27.0-31.0); MEAN CORPUSCULAR HGB CONC 33.6 g/dL (33.0-36.5); MEAN PLATELET VOLUME 7.9 FL (7.4-10.4); MONOCYTES % (AUTO) 15.1 % (2-12); NEUTROPHILS # (AUTO) 2.4 X10'3 (1.8-7.7); RED BLOOD COUNT 2.87 X10'6 (4.20-5.60); RED CELL DISTRIBUTION WIDTH 17.6 % (11.5-14.5); WHITE BLOOD COUNT 3.5 X10'3 (4.5-11.0)
[2024-11-16 08:21] LABS: ALANINE AMINOTRANSFERASE 23 U/L (12-78); ALBUMIN 2.3 G/DL (3.4-5.0); ALBUMIN/GLOBULIN RATIO 0.7 (1.1-1.5); ALKALINE PHOSPHATASE 97 IU/L (46-116); ANION GAP 5 (8-16); ASPARTATE AMINO TRANSFERASE 20 U/L (10-37); BLOOD UREA NITROGEN 22 MG/DL (7-18); BUN/CREATININE RATIO 24.7 (10.0-20.0); CALCIUM 7.7 MG/DL (8.5-10.1); CHLORIDE 104 MMOL/L (99-107); CREATININE 0.89 MG/DL (0.40-0.90); GLUCOSE 166 MG/DL (70-104); MAGNESIUM 1.9 MG/DL (1.5-2.4); POTASSIUM 4.3 MMOL/L (3.5-5.1); SODIUM 134 MMOL/L (135-145); TOTAL CARBON DIOXIDE 24.7 MMOL/L (24-32); TOTAL PROTEIN 5.4 G/DL (6.4-8.2); eCRCL 59 ML/MIN; eGFR 63 ML/MIN
[2024-11-16] MEDS: levoTHYROXINE 25mcg tablet PO SCH (09:32)
[2024-11-16] MEDS: spironolactone 25 MG tablet PO SCH (09:37)
[2024-11-16] MEDS: pantoprazole 40 MG vial IV SCH (21:37)
[2024-11-17] VITALS (16 sets, daily range): BP systolic 115–186; BP diastolic 31–84; PULSE 73–107; RESP 11–18; TEMP 97.3–98.2; O2SAT 97–100
[2024-11-17 07:47] LABS: BASOPHILS % (AUTO) 0.5 % (0-1); EOSINOPHILS # (AUTO) 0.2 X10'3 (0-0.9); EOSINOPHILS % (AUTO) 5.3 % (0-6); HEMATOCRIT 24.4 % (35.0-45.0); HEMOGLOBIN 8.4 g/dl (12.0-16.0); LYMPHOCYTES # (AUTO) 0.4 X10'3 (1.1-4.8); LYMPHOCYTES % (AUTO) 13.3 % (21-51); MEAN CORPUSCULAR HEMOGLOBIN 30.9 PG (27.0-31.0); MEAN CORPUSCULAR HGB CONC 34.5 g/dL (33.0-36.5); MEAN CORPUSCULAR VOLUME 89.6 FL (78-98); MEAN PLATELET VOLUME 8.1 FL (7.4-10.4); MONOCYTES # (AUTO) 0.4 X10'3 (0-0.9); MONOCYTES % (AUTO) 12.3 % (2-12); NEUTROPHILS # (AUTO) 2.1 X10'3 (1.8-7.7); NEUTROPHILS % (AUTO) 68.6 % (42-75); PLATELET COUNT 62 X10'3 (140-440); RED BLOOD COUNT 2.72 X10'6 (4.20-5.60); RED CELL DISTRIBUTION WIDTH 17.8 % (11.5-14.5)
[2024-11-17 08:06] LABS: ALANINE AMINOTRANSFERASE 18 U/L (12-78); ALBUMIN 2.2 G/DL (3.4-5.0); ALBUMIN/GLOBULIN RATIO 0.7 (1.1-1.5); ALKALINE PHOSPHATASE 102 IU/L (46-116); ANION GAP 7 (8-16); ASPARTATE AMINO TRANSFERASE 18 U/L (10-37); BILIRUBIN,TOTAL 0.9 MG/DL (0.1-1.0); BLOOD UREA NITROGEN 20 MG/DL (7-18); BUN/CREATININE RATIO 24.1 (10.0-20.0); CALCIUM 7.9 MG/DL (8.5-10.1); CHLORIDE 106 MMOL/L (99-107); CREATININE 0.83 MG/DL (0.40-0.90); GLUCOSE 196 MG/DL (70-104); MAGNESIUM 2.1 MG/DL (1.5-2.4); SODIUM 136 MMOL/L (135-145); TOTAL CARBON DIOXIDE 23.4 MMOL/L (24-32); TOTAL PROTEIN 5.2 G/DL (6.4-8.2); eCRCL 63 ML/MIN; eGFR 68 ML/MIN
[2024-11-17 08:49] LABS: % IRON SATURATION 17 % (11-46); IRON 34 UG/DL (49-151); TOTAL IRON BINDING CAPACITY 202 UG/DL (259-388)
[2024-11-17 09:55] LABS: INR 1.1 INR; PROTHROMBIN TIME 11.2 SECONDS (9.0-12.0)
[2024-11-17] MEDS ORDERED: RIVA20TA PO (12:22)
[2024-11-17] MEDS ORDERED: PANT-47 PO (12:22)
[2024-11-17] MEDS ORDERED: fentaNYL/PF 50MCG/1 ML 2ML syringe ONE (13:46)
[2024-11-17] MEDS ORDERED: MIDAZolam 1 MG/ML 5ML VIAL ONE (13:47)
[2024-11-17] MEDS ORDERED: LIDOcaine 2% Viscous 15ml cup ONE (13:47)
[2024-11-17] MEDS: morphine 2 MG/ML inj. syringe IV PRN (15:45)
[2024-11-17] MEDS: acetaminophen 325mg tablet PO PRN (16:48)
[2024-11-17] MEDS: ALPRAZolam 0.25mg tablet PO PRN (20:12)
[2024-11-18 02:00] VITALS: BP 125/42; PULSE 74; RESP 19; TEMP 97.5; O2SAT 99
[2024-11-18 07:21] LABS: BASOPHILS % (AUTO) 0.4 % (0-1); EOSINOPHILS # (AUTO) 0.2 X10'3 (0-0.9); EOSINOPHILS % (AUTO) 4.3 % (0-6); HEMATOCRIT 27.7 % (35.0-45.0); HEMOGLOBIN 9.5 g/dl (12.0-16.0); LYMPHOCYTES # (AUTO) 0.4 X10'3 (1.1-4.8); LYMPHOCYTES % (AUTO) 10.3 % (21-51); MEAN CORPUSCULAR HEMOGLOBIN 30.9 PG (27.0-31.0); MEAN CORPUSCULAR HGB CONC 34.3 g/dL (33.0-36.5); MEAN CORPUSCULAR VOLUME 90.1 FL (78-98); MEAN PLATELET VOLUME 7.8 FL (7.4-10.4); MONOCYTES # (AUTO) 0.4 X10'3 (0-0.9); MONOCYTES % (AUTO) 9.1 % (2-12); NEUTROPHILS # (AUTO) 3.3 X10'3 (1.8-7.7); NEUTROPHILS % (AUTO) 75.9 % (42-75); PLATELET COUNT 86 X10'3 (140-440); RED BLOOD COUNT 3.08 X10'6 (4.20-5.60); RED CELL DISTRIBUTION WIDTH 17.8 % (11.5-14.5); WHITE BLOOD COUNT 4.3 X10'3 (4.5-11.0)
[2024-11-18 07:40] VITALS: BP_SYST 146; PULSE 69
[2024-11-18 07:55] LABS: ALANINE AMINOTRANSFERASE 24 U/L (12-78); ALBUMIN 2.6 G/DL (3.4-5.0); ALBUMIN/GLOBULIN RATIO 0.7 (1.1-1.5); ALKALINE PHOSPHATASE 115 IU/L (46-116); ANION GAP 7 (8-16); ASPARTATE AMINO TRANSFERASE 22 U/L (10-37); BILIRUBIN,TOTAL 1.2 MG/DL (0.1-1.0); BLOOD UREA NITROGEN 17 MG/DL (7-18); BUN/CREATININE RATIO 17.5 (10.0-20.0); CHLORIDE 102 MMOL/L (99-107); CREATININE 0.97 MG/DL (0.40-0.90); GLUCOSE 183 MG/DL (70-104); POTASSIUM 3.9 MMOL/L (3.5-5.1); SODIUM 135 MMOL/L (135-145); TOTAL PROTEIN 6.1 G/DL (6.4-8.2); eCRCL 54 ML/MIN; eGFR 57 ML/MIN
[2024-11-18 08:00] VITALS: RESP 18; O2SAT 100
[2024-11-19 05:16] LABS: HEP B CORE AB, IGM Negative (Negative); HEPATITIS C VIRUS ANTIBODY Non Reactive (Non Reactive)
[2024-11-20 13:10] LABS: HBV IU/mL HBV DNA not detected IU/mL (.)
== END 2024-11-18 12:58 | disposition home health service (06) | DRG 378 ==
LOC: PCU 3S 11-15 13:28
PROVIDERS: ADMIT Internal Medicine; ATTEND Internal Medicine
PROC: 0DB78ZX Excision of Stomach, Pylorus, Via Natural or Artificial Opening Endoscopic, Diagnostic (ICD-10-PCS; principal; 2024-11-17)
DX: K27.4 Chronic or unspecified peptic ulcer, site unspecified, with hemorrhage (principal); K76.6 Portal hypertension; E11.51 Type 2 diabetes mellitus with diabetic peripheral angiopathy without gangrene; K29.71 Gastritis, unspecified, with bleeding; I85.10 Secondary esophageal varices without bleeding; K75.81 Nonalcoholic steatohepatitis (NASH); K74.60 Unspecified cirrhosis of liver; E03.9 Hypothyroidism, unspecified; D64.9 Anemia, unspecified; F17.210 Nicotine dependence, cigarettes, uncomplicated; F43.10 Post-traumatic stress disorder, unspecified; F41.9 Anxiety disorder, unspecified; M79.671 Pain in right foot; D69.6 Thrombocytopenia, unspecified; M79.672 Pain in left foot; I10 Essential (primary) hypertension; I27.20 Pulmonary hypertension, unspecified; H54.8 Legal blindness, as defined in USA; Z80.7 Family history of other malignant neoplasms of lymphoid, hematopoietic and related tissues; Z80.1 Family history of malignant neoplasm of trachea, bronchus and lung; Z82.49 Family history of ischemic heart disease and other diseases of the circulatory system; Z82.5 Family history of asthma and other chronic lower respiratory diseases; Z83.3 Family history of diabetes mellitus; Z88.0 Allergy status to penicillin; Z88.1 Allergy status to other antibiotic agents; Z88.5 Allergy status to narcotic agent; Z90.710 Acquired absence of both cervix and uterus; Z88.8 Allergy status to other drugs, medicaments and biological substances; Z79.899 Other long term (current) drug therapy; Z79.84 Long term (current) use of oral hypoglycemic drugs
CPT/HCPCS: 36415; 43239; 80053; 82607; 82948; 83036; 83540; 83550; 83735; 84132; 84443; 85025; 85610; 86705; 86803; 87081; 87517; 87522; 99152; A4620; A6212; A6213; A6449; G0378; J1815; J2250; J2270; J2470; J3010; J7030

== ENCOUNTER 2024-12-16 16:20 | Inpatient (IN) | payer MEDICARE, MEDICAID ==
[~2024-12-16] VITALS: Ht 48.3 cm; Wt 77.0 kg
[~2024-12-16 16:20] MED LIST changes: +PANT-47 PO; +RIVA20TA PO
[2024-12-16] MEDS: normal saline 1000ML IV soln IVB ONE (18:30)
[2024-12-16 19:17] LABS: BASOPHILS % (AUTO) 0.4 % (0-1); EOSINOPHILS # (AUTO) 0.1 X10'3 (0-0.9); HEMATOCRIT 28.9 % (35.0-45.0); HEMOGLOBIN 10.1 g/dl (12.0-16.0); LYMPHOCYTES # (AUTO) 0.6 X10'3 (1.1-4.8); LYMPHOCYTES % (AUTO) 7.7 % (21-51); MEAN CORPUSCULAR HEMOGLOBIN 32.5 PG (27.0-31.0); MEAN CORPUSCULAR VOLUME 92.7 FL (78-98); MEAN PLATELET VOLUME 7.4 FL (7.4-10.4); MONOCYTES # (AUTO) 0.8 X10'3 (0-0.9); MONOCYTES % (AUTO) 11.3 % (2-12); NEUTROPHILS # (AUTO) 5.8 X10'3 (1.8-7.7); NEUTROPHILS % (AUTO) 79.6 % (42-75); PLATELET COUNT 148 X10'3 (140-440); RED BLOOD COUNT 3.12 X10'6 (4.20-5.60); RED CELL DISTRIBUTION WIDTH 18.1 % (11.5-14.5); WHITE BLOOD COUNT 7.3 X10'3 (4.5-11.0)
[2024-12-16 19:30] LABS: ALANINE AMINOTRANSFERASE 17 U/L (12-78); ALBUMIN 2.6 G/DL (3.4-5.0); ALBUMIN/GLOBULIN RATIO 0.6 (1.1-1.5); ALKALINE PHOSPHATASE 187 IU/L (46-116); ANION GAP 12 (8-16); ASPARTATE AMINO TRANSFERASE 24 U/L (10-37); BILIRUBIN,TOTAL 1.9 MG/DL (0.1-1.0); BLOOD UREA NITROGEN 20 MG/DL (7-18); BUN/CREATININE RATIO 19.6 (10.0-20.0); CALCIUM 8.9 MG/DL (8.5-10.1); CHLORIDE 93 MMOL/L (99-107); CREATININE 1.02 MG/DL (0.40-0.90); GLUCOSE 184 MG/DL (70-104); LIPASE 13 U/L (16-77); MAGNESIUM 1.7 MG/DL (1.5-2.4); POTASSIUM 5.4 MMOL/L (3.5-5.1); SODIUM 123 MMOL/L (135-145); TOTAL CARBON DIOXIDE 18.3 MMOL/L (24-32); TOTAL PROTEIN 7.3 G/DL (6.4-8.2); eCRCL 51 ML/MIN; eGFR 54 ML/MIN
[2024-12-16] MEDS: ketorolac trometh 15mg/ml vial 15 MG/ML ML IV ONE (20:26)
[2024-12-16] MEDS: orphenadrine citrate 60mg/2ml inj. IM ONE (20:31)
[2024-12-16] MEDS: ondansetron/PF 4mg/2ml inj IV ONE (20:45)
[2024-12-16] MEDS: fentaNYL/PF 50MCG/1 ML 2ML syringe IV ONE (20:50)
[2024-12-16] MEDS: HYDROcodone/acetaminophen 10/325mg tab PO ONE (21:13)
[2024-12-16 22:48] LABS: BILIRUBIN,URINE NEGATIVE (Neg); CLARITY,URINE CLEAR (Clear); COLOR,URINE YELLOW (Yellow); GLUCOSE, URINE NEGATIVE (Neg); KETONES,URINE NEGATIVE (Neg); LEUKOCYTE ESTERASE ,URINE NEGATIVE (Neg); NITRITES, URINE NEGATIVE (Neg); OCCULT BLOOD,URINE NEGATIVE (Neg); PROTEIN,URINE NEGATIVE (Neg)
[2024-12-16 23:00] LABS: UA COLLECTION TYPE STRAIGHT CATH
[2024-12-17] MEDS ORDERED: morphine 2 MG/ML inj. syringe IV PRN ×2 (01:15→13:55)
[2024-12-17] MEDS ORDERED: magnesium sulf-water 2g/50mL 50 ML IV PRN (01:15)
[2024-12-17] MEDS ORDERED: mag hydrox/Alum hydrox/simeth 30ml oral suspension PO PRN (01:15)
[2024-12-17] MEDS ORDERED: potassium Cl 40MEQ/1/2NS 520ml 520 ML IV PRN (01:15)
[2024-12-17] MEDS ORDERED: potassium Cl 20 mEq SR tablet PO PRN ×2 (01:15)
[2024-12-17] MEDS ORDERED: acetaminophen 325mg tablet PO PRN ×2 (01:15)
[2024-12-17] MEDS ORDERED: magnesium Cl slow-release 64mg tablet PO PRN (01:15)
[2024-12-17] MEDS ORDERED: magnesium hydroxide 30ml (MOM) UD suspension PO PRN (01:15)
[2024-12-17] MEDS ORDERED: magnesium sulf-water 4G/100mL 100 ML IV PRN (01:15)
[2024-12-17] MEDS ORDERED: ondansetron/PF 4mg/2ml inj IV PRN (01:15)
[2024-12-17 03:43] LABS: MAGNESIUM 1.9 MG/DL (1.5-2.4); POTASSIUM 5.2 MMOL/L (3.5-5.1)
[2024-12-17] MEDS: spironolactone 50 MG tablet PO SCH (04:35)
[2024-12-17] MEDS: HYDROmorphone inj. 0.5 MG/0.5 ML DISP.SYRIN IV PRN (05:32)
[2024-12-17 06:00] VITALS: BP 140/52; PULSE 88; RESP 17; TEMP 99.4; O2SAT 98
[2024-12-17] MEDS: K and/or MAG REPLACEMENT MC SCH (08:00)
[2024-12-17] MEDS: HYDROcodone/acetaminophen 5mg/325mg tablet PO PRN (08:32)
[2024-12-17] MEDS: furosemide 40mg/4ml inj IV SCH (08:32)
[2024-12-17] MEDS: docusate sod 100mg capsule PO SCH (08:55)
[2024-12-17 09:45] VITALS: BP 130/51; PULSE 98; RESP 18; O2SAT 93
[2024-12-17 10:16] VITALS: BP 126/35; PULSE 90; RESP 18; O2SAT 95
[2024-12-17] MEDS: lactose-reduced food (Ensure High Protein) 237ml bottle PO SCH (13:00)
[2024-12-17] MEDS ORDERED: HYDROmorphone inj. 0.5 MG/0.5 ML DISP.SYRIN IV PRN (14:00)
[2024-12-17] MEDS: normal saline 1000ml 1,000 ML IV SCH (14:08)
[2024-12-17 18:00] VITALS: BP 121/40; PULSE 95; RESP 13; TEMP 98.1; O2SAT 98
[2024-12-17] MEDS: NUT.TX.GLUC.INTOLER,LAC-FR,SOY (GLUCERNA) 237 ML PO SCH (18:00)
[2024-12-17 22:00] VITALS: BP 109/33; PULSE 96; RESP 16; TEMP 100.3; O2SAT 95
[2024-12-17] MEDS: ALPRAZolam 0.5mg tablet PO PRN (22:11)
[2024-12-18] VITALS (9 sets, daily range): BP systolic 115–162; BP diastolic 36–54; PULSE 85–96; RESP 14–18; TEMP 97.9–98.4; O2SAT 94–99
[2024-12-18 06:21] LABS: BASOPHILS % (AUTO) 0.9 % (0-1); EOSINOPHILS # (AUTO) 0.1 X10'3 (0-0.9); EOSINOPHILS % (AUTO) 1.8 % (0-6); HEMOGLOBIN 7.3 g/dl (12.0-16.0); LYMPHOCYTES # (AUTO) 0.7 X10'3 (1.1-4.8); LYMPHOCYTES % (AUTO) 18.3 % (21-51); MEAN CORPUSCULAR HGB CONC 34.6 g/dL (33.0-36.5); MEAN CORPUSCULAR VOLUME 92.4 FL (78-98); MEAN PLATELET VOLUME 7.2 FL (7.4-10.4); MONOCYTES # (AUTO) 0.6 X10'3 (0-0.9); MONOCYTES % (AUTO) 16.9 % (2-12); NEUTROPHILS # (AUTO) 2.4 X10'3 (1.8-7.7); NEUTROPHILS % (AUTO) 62.1 % (42-75); PLATELET COUNT 91 X10'3 (140-440); RED BLOOD COUNT 2.28 X10'6 (4.20-5.60); RED CELL DISTRIBUTION WIDTH 17.1 % (11.5-14.5); WHITE BLOOD COUNT 3.8 X10'3 (4.5-11.0)
[2024-12-18 07:05] LABS: ALANINE AMINOTRANSFERASE 11 U/L (12-78); ALBUMIN 1.8 G/DL (3.4-5.0); ALBUMIN/GLOBULIN RATIO 0.6 (1.1-1.5); ALKALINE PHOSPHATASE 136 IU/L (46-116); ANION GAP 8 (8-16); ASPARTATE AMINO TRANSFERASE 21 U/L (10-37); BILIRUBIN,TOTAL 0.7 MG/DL (0.1-1.0); BLOOD UREA NITROGEN 23 MG/DL (7-18); BUN/CREATININE RATIO 19.8 (10.0-20.0); CALCIUM 7.6 MG/DL (8.5-10.1); CHLORIDE 96 MMOL/L (99-107); CREATININE 1.16 MG/DL (0.40-0.90); GLUCOSE 160 MG/DL (70-104); MAGNESIUM 1.8 MG/DL (1.5-2.4); POTASSIUM 5.3 MMOL/L (3.5-5.1); SODIUM 125 MMOL/L (135-145); TOTAL CARBON DIOXIDE 21.4 MMOL/L (24-32); TOTAL PROTEIN 4.8 G/DL (6.4-8.2); eGFR 46 ML/MIN
[2024-12-18 07:34] LABS: HEMATOCRIT 21.1 % (35.0-45.0)
[2024-12-18] MEDS: cyclobenzaprine 10mg tablet PO PRN (08:29)
[2024-12-18] MEDS: levoTHYROXINE 25mcg tablet PO SCH (08:30)
[2024-12-18] MEDS: furosemide 20 MG/2 ML vial IV SCH (08:30)
[2024-12-18] MEDS: pantoprazole 40mg Tablet.DR PO SCH (08:31)
[2024-12-18 11:53] LABS: % IRON SATURATION 12 % (11-46); IRON 30 UG/DL (49-151); TOTAL IRON BINDING CAPACITY 244 UG/DL (259-388)
[2024-12-18] MEDS: normal saline 1000ml 1,000 ML IV SCH (19:05)
[2024-12-18] MEDS ORDERED: spironolactone 25 MG tablet PO SCH (20:00)
[2024-12-18 20:36] LABS: HEMATOCRIT 28.6 % (35.0-45.0); HEMOGLOBIN 10.1 g/dl (12.0-16.0); MEAN CORPUSCULAR HEMOGLOBIN 32.5 PG (27.0-31.0); MEAN CORPUSCULAR HGB CONC 35.2 g/dL (33.0-36.5); MEAN CORPUSCULAR VOLUME 92.4 FL (78-98); MEAN PLATELET VOLUME 7.4 FL (7.4-10.4); PLATELET COUNT 98 X10'3 (140-440); RED BLOOD COUNT 3.09 X10'6 (4.20-5.60); RED CELL DISTRIBUTION WIDTH 16.6 % (11.5-14.5)
[2024-12-18] MEDS ORDERED: glucagon, human recombinant 1mg kit SUBCUT PRN (23:55)
[2024-12-18] MEDS ORDERED: DEXTROSE 15 GM of carb/4 tabs (each vial/BOTTLE has 4 tablets) PO PRN ×2 (23:55)
[2024-12-18] MEDS ORDERED: dextrose 50%-water 50ml dispensing syringe IV PRN ×2 (23:55)
[2024-12-19] MEDS: insulin glargine (Lantus) pen - multi-dose SQ SCH (00:42)
[2024-12-19 06:00] VITALS: BP 121/51; PULSE 88; RESP 16; TEMP 97.9; O2SAT 96
[2024-12-19 06:55] LABS: BASOPHILS % (AUTO) 0.7 % (0-1); EOSINOPHILS # (AUTO) 0.1 X10'3 (0-0.9); EOSINOPHILS % (AUTO) 1.8 % (0-6); HEMATOCRIT 25.2 % (35.0-45.0); HEMOGLOBIN 8.7 g/dl (12.0-16.0); LYMPHOCYTES # (AUTO) 0.6 X10'3 (1.1-4.8); LYMPHOCYTES % (AUTO) 11.8 % (21-51); MEAN CORPUSCULAR HEMOGLOBIN 31.8 PG (27.0-31.0); MEAN CORPUSCULAR HGB CONC 34.6 g/dL (33.0-36.5); MEAN PLATELET VOLUME 7.3 FL (7.4-10.4); MONOCYTES # (AUTO) 0.8 X10'3 (0-0.9); MONOCYTES % (AUTO) 15.1 % (2-12); NEUTROPHILS # (AUTO) 3.7 X10'3 (1.8-7.7); NEUTROPHILS % (AUTO) 70.6 % (42-75); PLATELET COUNT 90 X10'3 (140-440); RED BLOOD COUNT 2.75 X10'6 (4.20-5.60); RED CELL DISTRIBUTION WIDTH 16.1 % (11.5-14.5); WHITE BLOOD COUNT 5.3 X10'3 (4.5-11.0)
[2024-12-19 07:14] LABS: ALANINE AMINOTRANSFERASE 14 U/L (12-78); ALBUMIN 1.9 G/DL (3.4-5.0); ALBUMIN/GLOBULIN RATIO 0.6 (1.1-1.5); ALKALINE PHOSPHATASE 138 IU/L (46-116); ANION GAP 7 (8-16); ASPARTATE AMINO TRANSFERASE 18 U/L (10-37); BLOOD UREA NITROGEN 21 MG/DL (7-18); BUN/CREATININE RATIO 23.9 (10.0-20.0); CALCIUM 7.7 MG/DL (8.5-10.1); CHLORIDE 97 MMOL/L (99-107); CREATININE 0.88 MG/DL (0.40-0.90); GLUCOSE 140 MG/DL (70-104); MAGNESIUM 1.8 MG/DL (1.5-2.4); SODIUM 127 MMOL/L (135-145); TOTAL CARBON DIOXIDE 23.1 MMOL/L (24-32); TOTAL PROTEIN 5.1 G/DL (6.4-8.2); eGFR 64 ML/MIN
[2024-12-19] MEDS: spironolactone 25 MG tablet PO SCH (07:50)
[2024-12-19 08:00] VITALS: RESP 16; O2SAT 96
[2024-12-19] MEDS: INSULIN LISPRO 100 UNIT/ML INSULN.PEN MULTI-DOSE SQ SCH (08:30)
[2024-12-19 10:00] VITALS: BP 110/31; PULSE 89; RESP 18; TEMP 98.4; O2SAT 96
[2024-12-19 14:30] LABS: HEMATOCRIT 26.4 % (35.0-45.0); HEMOGLOBIN 9.3 g/dl (12.0-16.0); MEAN CORPUSCULAR HEMOGLOBIN 32.2 PG (27.0-31.0); MEAN CORPUSCULAR VOLUME 92.1 FL (78-98); MEAN PLATELET VOLUME 7.5 FL (7.4-10.4); PLATELET COUNT 112 X10'3 (140-440); RED BLOOD COUNT 2.87 X10'6 (4.20-5.60); RED CELL DISTRIBUTION WIDTH 16.6 % (11.5-14.5); WHITE BLOOD COUNT 6.1 X10'3 (4.5-11.0)
[2024-12-19 16:58] LABS: OCCULT BLOOD STOOL NEGATIVE (Neg)
[2024-12-19 18:00] VITALS: BP 106/30; PULSE 60; RESP 17; TEMP 97.5; O2SAT 98
[2024-12-19 22:00] VITALS: BP 124/49; PULSE 84; RESP 18; TEMP 98; O2SAT 97
[2024-12-20] VITALS (9 sets, daily range): BP systolic 102–142; BP diastolic 34–65; PULSE 69–76; RESP 12–18; O2SAT 100
[2024-12-20 07:39] LABS: BASOPHILS % (AUTO) 0.6 % (0-1); EOSINOPHILS # (AUTO) 0.2 X10'3 (0-0.9); EOSINOPHILS % (AUTO) 4.5 % (0-6); HEMATOCRIT 23.9 % (35.0-45.0); HEMOGLOBIN 8.1 g/dl (12.0-16.0); LYMPHOCYTES # (AUTO) 0.6 X10'3 (1.1-4.8); LYMPHOCYTES % (AUTO) 13.4 % (21-51); MEAN CORPUSCULAR HEMOGLOBIN 31.5 PG (27.0-31.0); MEAN CORPUSCULAR HGB CONC 34.1 g/dL (33.0-36.5); MEAN CORPUSCULAR VOLUME 92.4 FL (78-98); MEAN PLATELET VOLUME 7.5 FL (7.4-10.4); MONOCYTES # (AUTO) 0.6 X10'3 (0-0.9); MONOCYTES % (AUTO) 13.2 % (2-12); NEUTROPHILS # (AUTO) 3.3 X10'3 (1.8-7.7); NEUTROPHILS % (AUTO) 68.3 % (42-75); PLATELET COUNT 83 X10'3 (140-440); RED BLOOD COUNT 2.58 X10'6 (4.20-5.60); RED CELL DISTRIBUTION WIDTH 16.3 % (11.5-14.5); WHITE BLOOD COUNT 4.8 X10'3 (4.5-11.0)
[2024-12-20 07:53] LABS: ALANINE AMINOTRANSFERASE 14 U/L (12-78); ALBUMIN 1.7 G/DL (3.4-5.0); ALBUMIN/GLOBULIN RATIO 0.5 (1.1-1.5); ALKALINE PHOSPHATASE 134 IU/L (46-116); ANION GAP 6 (8-16); ASPARTATE AMINO TRANSFERASE 17 U/L (10-37); BILIRUBIN,TOTAL 0.8 MG/DL (0.1-1.0); BLOOD UREA NITROGEN 21 MG/DL (7-18); BUN/CREATININE RATIO 25.9 (10.0-20.0); CALCIUM 6.3 MG/DL (8.5-10.1); CHLORIDE 98 MMOL/L (99-107); CREATININE 0.81 MG/DL (0.40-0.90); GLUCOSE 141 MG/DL (70-104); MAGNESIUM 2.1 MG/DL (1.5-2.4); SODIUM 127 MMOL/L (135-145); TOTAL CARBON DIOXIDE 22.9 MMOL/L (24-32); eGFR 70 ML/MIN
[2024-12-20] MEDS ORDERED: LIDOcaine 2% Viscous 15ml cup ONE (12:10)
[2024-12-20] MEDS ORDERED: simethicone 40mg/0.6ml oral drops 30ml ONE (12:24)
[2024-12-20] MEDS ORDERED: fentaNYL/PF 50MCG/1 ML 2ML syringe ONE (13:36)
[2024-12-20] MEDS ORDERED: MIDAZolam 1 MG/ML 5ML VIAL ONE (13:36)
[2024-12-20 15:24] LABS: HEMATOCRIT 30.2 % (35.0-45.0); HEMOGLOBIN 10.4 g/dl (12.0-16.0); MEAN CORPUSCULAR HGB CONC 34.3 g/dL (33.0-36.5); MEAN CORPUSCULAR VOLUME 93.3 FL (78-98); MEAN PLATELET VOLUME 7.9 FL (7.4-10.4); PLATELET COUNT 118 X10'3 (140-440); RED BLOOD COUNT 3.23 X10'6 (4.20-5.60); RED CELL DISTRIBUTION WIDTH 16.3 % (11.5-14.5); WHITE BLOOD COUNT 7.1 X10'3 (4.5-11.0)
[2024-12-20] MEDS ORDERED: PANT-47 PO (16:35)
[2024-12-20] MEDS ORDERED: HYDR-3964 PO ×2 (16:35→16:38)
[2024-12-20] MEDS ORDERED: FURO20TA4 PO (16:35)
[2024-12-20] MEDS ORDERED: SPIR25TA PO (16:35)
== END 2024-12-20 17:50 | disposition home or self-care (01) | DRG 543 ==
LOC: ER 16:21 → ED HOLD 23:40 → ORTHO 4S 12-17 04:35
PROVIDERS: ADMIT Internal Medicine; ATTEND Internal Medicine
PROC: 0W9G30Z Drainage of Peritoneal Cavity with Drainage Device, Percutaneous Approach (ICD-10-PCS; principal; 2024-12-17)
PROC: 30233N1 Transfusion of Nonautologous Red Blood Cells into Peripheral Vein, Percutaneous Approach (ICD-10-PCS; 2024-12-17)
PROC: 0D538ZZ Destruction of Lower Esophagus, Via Natural or Artificial Opening Endoscopic (ICD-10-PCS; 2024-12-20)
PROC: 0D5 Gastrointestinal System, Destruction (ICD-10-PCS; 2024-12-20)
PROC: 0DB68ZX Excision of Stomach, Via Natural or Artificial Opening Endoscopic, Diagnostic (ICD-10-PCS; 2024-12-20)
PROC: 0DB78ZX Excision of Stomach, Pylorus, Via Natural or Artificial Opening Endoscopic, Diagnostic (ICD-10-PCS; 2024-12-20)
DX: M48.54XA Collapsed vertebra, not elsewhere classified, thoracic region, initial encounter for fracture (principal); D62 Acute posthemorrhagic anemia; E87.1 Hypo-osmolality and hyponatremia; I48.20 Chronic atrial fibrillation, unspecified; K76.6 Portal hypertension; I85.10 Secondary esophageal varices without bleeding; R18.8 Other ascites; K92.1 Melena; L89.152 Pressure ulcer of sacral region, stage 2; K75.81 Nonalcoholic steatohepatitis (NASH); K74.69 Other cirrhosis of liver; F11.10 Opioid abuse, uncomplicated; H54.8 Legal blindness, as defined in USA; E03.9 Hypothyroidism, unspecified; F41.9 Anxiety disorder, unspecified; F43.10 Post-traumatic stress disorder, unspecified; J43.9 Emphysema, unspecified; K80.20 Calculus of gallbladder without cholecystitis without obstruction; N20.0 Calculus of kidney; R16.1 Splenomegaly, not elsewhere classified; K31.819 Angiodysplasia of stomach and duodenum without bleeding; E11.622 Type 2 diabetes mellitus with other skin ulcer; L98.499 Non-pressure chronic ulcer of skin of other sites with unspecified severity; Z79.84 Long term (current) use of oral hypoglycemic drugs; Z85.118 Personal history of other malignant neoplasm of bronchus and lung; Z88.0 Allergy status to penicillin; Z79.01 Long term (current) use of anticoagulants; Z88.5 Allergy status to narcotic agent; Z88.8 Allergy status to other drugs, medicaments and biological substances; Z88.1 Allergy status to other antibiotic agents
CPT/HCPCS: 36415; 36430; 43227; 43235; 72128; 72131; 74176; 80053; 81003; 82272; 82948; 83540; 83550; 83690; 83735; 84132; 84145; 85025; 85027; 86885; 86900; 86901; 86920; 87081; 93005; 97161; 97530; 99152; 99285; A4620; A4649; A6196; A6212; A6213; A6250; A6446; A6449; G0378; J1171; J1815; J1885; J1940; J2250; J2360; J2405; J3010; J7030; J7040; J7050; P9016

== ENCOUNTER 2025-01-13 06:36 | Emergency (ER) | payer MEDICARE, MEDICAID ==
[~2025-01-13] VITALS: Ht 170.2 cm; Wt 74.0 kg
[~2025-01-13 06:36] MED LIST changes: +HYDR-3964 PO; +SPIR25TA PO; -SPIR50TA PO
[2025-01-13 06:37] VITALS: TEMP 97.6
[2025-01-13 07:44] LABS: BASOPHILS # (AUTO) 0.1 X10'3 (0-0.2); BASOPHILS % (AUTO) 0.9 % (0-1); EOSINOPHILS # (AUTO) 0.2 X10'3 (0-0.9); EOSINOPHILS % (AUTO) 2.8 % (0-6); HEMATOCRIT 32.9 % (35.0-45.0); HEMOGLOBIN 11.5 g/dl (12.0-16.0); LYMPHOCYTES # (AUTO) 0.7 X10'3 (1.1-4.8); LYMPHOCYTES % (AUTO) 9.1 % (21-51); MEAN CORPUSCULAR HEMOGLOBIN 31.6 PG (27.0-31.0); MEAN CORPUSCULAR VOLUME 90.4 FL (78-98); MEAN PLATELET VOLUME 6.4 FL (7.4-10.4); MONOCYTES # (AUTO) 0.6 X10'3 (0-0.9); MONOCYTES % (AUTO) 8.5 % (2-12); NEUTROPHILS # (AUTO) 5.9 X10'3 (1.8-7.7); NEUTROPHILS % (AUTO) 78.7 % (42-75); PLATELET COUNT 134 X10'3 (140-440); RED BLOOD COUNT 3.64 X10'6 (4.20-5.60); RED CELL DISTRIBUTION WIDTH 17.1 % (11.5-14.5); WHITE BLOOD COUNT 7.5 X10'3 (4.5-11.0)
[2025-01-13 08:00] LABS: ALANINE AMINOTRANSFERASE 21 U/L (12-78); ALBUMIN 2.2 G/DL (3.4-5.0); ALBUMIN/GLOBULIN RATIO 0.4 (1.1-1.5); ALKALINE PHOSPHATASE 225 IU/L (46-116); ANION GAP 8 (8-16); ASPARTATE AMINO TRANSFERASE 34 U/L (10-37); BILIRUBIN,TOTAL 1.3 MG/DL (0.1-1.0); BLOOD UREA NITROGEN 47 MG/DL (7-18); BUN/CREATININE RATIO 39.2 (10.0-20.0); CALCIUM 8.7 MG/DL (8.5-10.1); CHLORIDE 97 MMOL/L (99-107); GLUCOSE 166 MG/DL (70-104); MAGNESIUM 2.4 MG/DL (1.5-2.4); POTASSIUM 5.1 MMOL/L (3.5-5.1); SODIUM 123 MMOL/L (135-145); TOTAL CARBON DIOXIDE 17.8 MMOL/L (24-32); TOTAL PROTEIN 7.1 G/DL (6.4-8.2); eCRCL 44 ML/MIN; eGFR 45 ML/MIN
[2025-01-13] MEDS: oxyCODONE/APAP 10/325mg tablet PO ONE (08:03)
[2025-01-13] MEDS: ketorolac trometh 15mg/ml vial 15 MG/ML ML IV ONE (08:03)
[2025-01-13 10:44] LABS: BILIRUBIN,URINE NEGATIVE (Neg); CLARITY,URINE CLEAR (Clear); COLOR,URINE YELLOW (Yellow); GLUCOSE, URINE NEGATIVE (Neg); KETONES,URINE NEGATIVE (Neg); LEUKOCYTE ESTERASE ,URINE NEGATIVE (Neg); NITRITES, URINE NEGATIVE (Neg); OCCULT BLOOD,URINE NEGATIVE (Neg); PROTEIN,URINE NEGATIVE (Neg); UROBILINOGEN,URINE 0.2 E.U/dL (0.2-1.0)
[2025-01-13 10:49] LABS: UA COLLECTION TYPE STRAIGHT CATH
[2025-01-13] MEDS: normal saline 1000ML IV soln IVB ONE (12:38)
[2025-01-13 13:38] VITALS: BP 140/98; PULSE 88; RESP 20; O2SAT 94
== END 2025-01-13 13:45 | disposition home or self-care (01) ==
LOC: ER 06:37
DX: M54.59 Other low back pain (principal); E86.0 Dehydration; D64.9 Anemia, unspecified; E05.90 Thyrotoxicosis, unspecified without thyrotoxic crisis or storm; F17.210 Nicotine dependence, cigarettes, uncomplicated; Z88.1 Allergy status to other antibiotic agents; Z88.0 Allergy status to penicillin; Z88.5 Allergy status to narcotic agent; Z88.8 Allergy status to other drugs, medicaments and biological substances; Z79.899 Other long term (current) drug therapy
CPT/HCPCS: 36415; 80053; 81003; 83735; 84145; 85025; 93005; 96374; 99284; C1758; J1885; J7030; J7040